=== PATIENT | female | born 1950 | race Caucasian/White ===

== ENCOUNTER 2017-12-22 10:56 | Inpatient (IN) | payer OTHER, MEDICARE ==
[2017-12-22] MEDS ORDERED: ASPIRIN 81 MG CHEWABLE TAB PO ONE (11:05)
[2017-12-22] MEDS ORDERED: ASPIRIN 81 MG CHEWABLE TAB ONE (11:11)
--- NOTE | 2017-12-22 11:11 | CPEKG ---
Heart Rate: 50 RR Interval: 1200 P-R Interval: 192 QRSD Interval: 80 QT Interval: 460 QTC Interval: 420 P Strat[place]: 68 QRS [place]: 66 T Wave [place]: 83 EKG Severity - ABNORMAL ECG - EKG Impression: SINUS RHYTHM EKG Impression: INFERIOR INJURY, PROBABLE EARLY ACUTE INFARCT EKG Impression: CONSIDER POSTERIOR WALL INVOLVEMENT Electronically Signed By: Jesus Manuel Sanz 22-Dec-2017 13:30:26
[2017-12-22] MEDS ORDERED: MIDAZOLAM 2 MG/2 ML VIAL ONE ×2 (11:18→11:28)
[2017-12-22] MEDS ORDERED: fentaNYL 100 MCG/2 ML INJ ONE (11:18)
--- NOTE | 2017-12-22 11:20 | EDPHY ---
H & P Stated Complaint: l cp noticed 1 hr ago Time Seen by Provider: 12/22/17 11:15 HPI/ROS: Chief Complaint: Chest pain HPI: 67-year-old woman began having substernal chest pain 1 hr ago. She is describing is a squeezing sensation similar to a blood pressure cuff. At worst is a 5/10. She has not have a history of similar episodes in the past. Pain is now down to about a 3/10. Has mild shortness of breath. She is having some numbness associated in her left arm. Does not have a history of similar episodes in the past. No fevers or chills. No cough. No recent illness. Has a history of smoking 2-3 cigarettes today is ago but has never been a heavy smoker. No family history of coronary artery disease. Denies any other medical problems or medicines. She is down visiting from [place]. She is not taking any medications for this. ROS: 10 point Review of Systems is negative except as noted in the HPI. PMH: Denies Social History: Former smoking, occasional alcohol, no recreational drug use Family History: No family history of coronary artery disease Physical Exam: Gen: Awake, Alert, uncomfortable appearing HEENT: Nose: no rhinorrhea Eyes: PERRLA, EOMI Mouth: Moist mucosa Neck: Supple, no JVD Chest: nontender, lungs clear to auscultation Heart: S1, S2 normal, no murmur Abd: Soft, non-tender, no guarding Back: no CVA tenderness, no midline tenderness Ext: no edema, non-tender Skin: no rash Neuro: CN II-XII intact, Sensation grossly intact, Strength 5/5 in bilateral upper and lower extremities - Personal History Current Tetanus/Diphtheria Vaccine: No - Medical/Surgical History Hx Asthma: No Hx Chronic Respiratory Disease: No Hx Diabetes: No Hx Cardiac Disease: No Hx Renal Disease: No Hx Cirrhosis: No Hx Alcoholism: No Hx HIV/AIDS: No Hx Splenectomy or Spleen Trauma: No Other PMH: palpitations - Social History Smoking Status: Never smoked Constitutional: Initial Vital Signs Temperature (C) 36.3 C 12/22/17 10:59 Heart Rate 54 L 12/22/17 10:59 Respiratory Rate 17 12/22/17 10:59 Blood Pressure 132/57 H 12/22/17 10:59 O2 Sat (%) 99 12/22/17 10:59 O2 Delivery Mode Room Air Allergies/Adverse Reactions: No Known Allergies Allergy (Unverified 12/22/17 10:58) Home Medications: Medication Instructions Recorded Ativan 12/22/17 Medical Decision Making - Diagnostics EKG Interpretation: ECG time 1109 a.m. sinus rhythm with a rate of 50, there are is ST elevations in leads to 3 in AVF with reciprocal changes in V1 and V2 consistent with an acute inferior STEMI. ED Course/Re-evaluation: 1109 ECG noted, cardiac alert called by me. Patient given IVs. She has gotten 324 mg of aspirin orally. 1112 Dr. Ireland, cardiology at the bedside. Patient to go to the field laborer. Departure - Departure Disposition: [facility] Inpatient Acute Clinical Impression: ST elevation myocardial infarction (STEMI) Condition: Serious Referrals: NONE *PRIMARY CARE P,. [Primary Care Provider] - As per Instructions
[2017-12-22] MEDS ORDERED: BIVALIRUDIN 250 MG/5 ML VIAL IV ONE (11:27)
[2017-12-22] MEDS ORDERED: NITROGLYCERIN 1,500 MCG/15 ML VIAL MISC ONE (11:43)
--- NOTE | 2017-12-22 12:27 | CPEKG ---
Heart Rate: 54 RR Interval: 1111 P-R Interval: 192 QRSD Interval: 92 QT Interval: 488 QTC Interval: 463 P [place]: 80 QRS [place]io: 63 T Wave [place]io: 71 EKG Severity - NORMAL ECG - EKG Impression: SINUS RHYTHM Electronically Signed By: Trung Hollingsworth 26-Dec-2017 09:37:15
[2017-12-22] MEDS ORDERED: ONDANSETRON 4 MG/2 ML VIAL IVP PRN (13:04)
[2017-12-22] MEDS ORDERED: ATROPINE SULFATE 1 MG/10 ML SYR IVP PRN (13:04)
[2017-12-22] MEDS ORDERED: NITROGLYCERIN 0.4 MG BTL SL PRN (13:04)
[2017-12-22] MEDS ORDERED: ACETAMINOPHEN 325 MG TAB PO PRN (13:04)
[2017-12-22] MEDS ORDERED: NS 1,000 ML IV SCH (13:15)
[2017-12-22] MEDS ORDERED: CLOPIDOGREL BISULFATE 75 MG TAB PO ONE (13:20)
[2017-12-22 13:31] LABS: PLATELET COUNT 237 10^3/uL (150-400)
--- NOTE | 2017-12-22 13:34 | PDDXCAT ---
Diagnostic Cath Note - . Date: 12/22/17 Professor Of Legal Studies: Beka Indication: other (Chest pain with inferior ST segment elevation.) - Procedure Access: right groin Procedure: left heart catheterization, coronary angiography, left ventriculogram - Materials Left Heart Cath size: 6F Left Heart Cath materials: JL4.0, pigtail, Mitch's R, other (JR4.0 guide catheter) - Findings-Left Heart Catheterization LM: Normal. LAD: Angiographically normal. LCX: For the most part, the circumflex and its branches appear to be angiographically normal. However, in some views there is what appears to be a small, distal, obtuse marginal branch "ghosting in" as if filled by collaterals. There is a bifurcating low posterolateral branch. The inferior division of this posterolateral branch has some spasm versus stenosis in its distal portion. RCA: Initially, a 6 Turkish guide catheter was used to engage the RCA in anticipation of the need for a PCI procedure. The ostial RCA developed significant spasm with severe damping of the pressure wave-form. Angiography revealed that, apart from the ostial spasm, the RCA and its distal branches were angiographically normal. The 6 Turkish guide catheter was exchanged for a 5 Turkish Ronnell right. The RCA was engaged and continued to demonstrate spasm. A 300 mcg dose of intracoronary nitroglycerin was administered. A few minutes later, repeat angiography demonstrated that the ostial spasm had resolved and the entire RCA appeared angiographically normal. EDP: 20 mmHg LVEF: 60% Wall motion: Inferoapical hypokinesis to akinesis. Complications: None Estimated blood loss: <50ml Closure method: Angioseal Assessment: 1) Overall preserved left ventricular systolic function with inferoapical akinesis. 2) Coronary anatomy as described above. Plan: Her angiographic images were reviewed in the cardiac cath lab radiology technologist by one of my interventional colleagues. There was no sign of a "stump" coming off of the circumflex that would explain a distal obtuse marginal branch filling by collaterals. The inferior division of the circumflex posterolateral branch was not felt to be of significant enough size or in the proper location to explain her left ventricular wall motion abnormality. While severe spasm of the ostial RCA could explain the inferior ST segment elevation on her ECG and her wall motion abnormality, it is typically thought that catheter induced coronary vasospasm is a nonspecific finding and does not necessarily correlate with clinical Prinzmetal angina. Another colleague felt that more of the true LV apex was involved suggesting that this potentially represented an episode of Takotsubo syndrome. A 12-lead ECG was repeated prior to taking her off of the cardiac cath lab radiology technologist table. This ECG appeared entirely normal. She will be admitted to the telemetry service. An echocardiogram and serial cardiac enzymes will be obtained. The magnitude of her enzyme rise may help distinguish between an infarction due to RCA spasm versus an episode of Takotsubo syndrome. She will be started on dual antiplatelet therapy. A lipid panel will be checked. Beta christina therapy will be started but may be transitioned to a calcium channel christina if it is ultimately felt that she has Prinzmetal angina. Patient Problems: Problems Problem Status Onset ST elevation myocardial infarction (STEMI) Acute
[2017-12-22 13:35] LABS: CREATINE KINASE 58 IU/L (0-156)
[2017-12-22] MEDS: HYDROCODONE/APAP 5/325 TAB PO PRN ×3 (14:12→22:07)
[2017-12-22] MEDS: METOPROLOL TARTRATE 25 MG TAB PO SCH ×2 (14:19→21:09)
--- NOTE | 2017-12-22 15:39 | ECHO ---
[email or web address] [address] [address] Main: [phone] Fax: Transthoracic Echocardiogram Name: ANANDA ELIAS MR#: [id number] Study Date: 12/22/2017 Study Time: 01:37 PM Date of : 1950 Age: 67 year(s) Height: 165.1 cm (65 in.) Weight: 61.24 kg (135 lb.) BSA: 1.67 m2 Gender: Female Examination: Echo Indication: Chest Pain Image Quality: Contrast: Requested by: Cornelio Ireland BP: 103 mmHg/57 mmHg Heart Rate: Rhythm: Indication: Chest Pain Procedure [employer] Director: Whit Fletcher Physician: Cornelio Ireland Requesting Provider: Cornelio Ireland Measurements: Chambers Valvular Assessment AV/MV Valvular Assessment TV/PV Normal Normal Normal Name Value Range Name Value Range Name Value Range Ao Claudine (MM): 2.8 cm (2.2 cm-3.7 AV Vmax: 1.07 m/s (1 m/s-1.7 TR Vmax: 2.46 mm/s ( - ) cm) m/s) TR PGmax: 24 mmHg ( - ) IVSd (2D): 0.6 cm (0.6 cm-1.1 AV maxP mmHg ( - ) syst. PAP: 29 mmHg ( - ) cm) LVDd (2D): 4.5 cm (3.9 cm-5.3 cm) LVDs (2D): 2.8 cm (2.1 cm-4 cm) LVPWd (2D): 0.7 cm ( - ) LVEF (MOD4): 65 % (>=55 %) EF Range: 65-70 % Continued Measurements: Chambers Valvular Assessment TV/PV Name Value Name Value LADs: 2.8 cm CVP (est.): 5 mmHg Findings: Left Ventricle: Normal size left ventricle. No LV hypertrophy. Normal global systolic LV function. The ejection fraction is estimated to be 65-70 %. LV mid inferolateral wall appears hypokinetic. . Right Ventricle: Normal size right ventricle. There is a moderator band noted in the right ventricle. Left Atrium: Patient: ANANDA ELIAS Study Date: 12/22/2017 Page 1 of 2 01:37 PM The left atrium is normal in size. Right Atrium: The right atrium is normal in size. Mitral Valve: The mitral valve is normal in appearance and function. Mild mitral valve regurgitation is present. Aortic Valve: The aortic valve is normal in appearance and function. Tricuspid Valve: The tricuspid valve is normal in appearance and function. Trivial tricuspid valve regurgitation. Pulmonic Valve: Pulmonary valve not well visualized. Aorta: The aorta is normal. Pericardium: No pericardial effusion. (No Signature Object) Patient: ANANDA ELIAS Study Date: 12/22/2017 Page 2 of 2 01:37 PM [id number]
--- NOTE | 2017-12-22 17:54 | GHP ---
[f rep st] HISTORY AND PHYSICAL DATE OF ADMISSION: 12/22/2017 REASON FOR ADMISSION: Acute inferior ST-segment elevation myocardial infarction. HISTORY: The patient is a 67-year-old woman with no prior cardiac history. She was talking on the phone early this morning and began to develop significant substernal chest pressure. There was no radiation or associated diaphoresis or shortness of breath. She did not experience nausea. Her symptoms persisted and she called 911. On arrival to the emergency department, her ECG demonstrates inferior ST elevation of at least 1.5 mm with some reciprocal changes. She is hemodynamically stable. PAST MEDICAL HISTORY: Notable for hypothyroidism and polycystic ovarian syndrome. PAST SURGICAL HISTORY: Bilateral oophorectomy. MEDICATIONS: Synthroid and Ativan. ALLERGIES: No known drug allergies. FAMILY HISTORY: Noncontributory. SOCIAL HISTORY: She is single. She has no offspring. She works as a designer/writer. She does not consume significant amounts of alcohol. In the remote past she would smoke a few cigarettes per day, but has not done so for many years. REVIEW OF SYSTEMS: Apart from the chest pressure that prompted this hospital encounter, a 10-point review was negative. PHYSICAL EXAMINATION: VITAL SIGNS: Heart rate in the 70s with sinus rhythm on the monitor. Blood pressure 114/60. GENERAL: Well developed, well nourished, healthy appearing, middle-aged female, in no acute distress. She is alert and oriented x3. HEAD AND NECK: No scleral icterus. Mucous membranes moist. Carotid pulses 2+, without bruits. There is no JVD. CHEST: Lung hdz clear to auscultation. CARDIAC: Regular rate and rhythm, with normal S1 and S2. There is no murmur or gallop. ABDOMEN: Soft, nondistended, nontender, with normal bowel sounds. EXTREMITIES: 2+ pulses and no peripheral edema. ECG: Her ECG findings are described in the History of Present Illness. LABORATORY: Pending at the time of this dictation. IMPRESSION: This is a 67-year-old woman, presenting with an acute inferior ST- segment elevation myocardial infarction that began approximately 1 hour prior to her arrival. She is hemodynamically stable. PLAN: Preparations are underway to take the patient emergently to the cardiac laborer steel handling for angiography and intervention. It is anticipated that she will remain in the hospital for more than 2 midnights for care of her VT. /[id number]/MODL MTDD
[2017-12-22 22:00] LABS: CREATINE KINASE 150 IU/L (0-156)
[2017-12-22] MEDS: LORazepam 0.5 MG TAB PO PRN (22:08)
[2017-12-23] MEDS: LORazepam 0.5 MG TAB PO PRN (00:05)
[2017-12-23 05:28] LABS: CREATINE KINASE 186 IU/L (0-156)
[2017-12-23 08:38] VITALS: RESP 18
[2017-12-23] MEDS ORDERED: amLODIPine BESYLATE 5 MG TAB PO SCH (09:00)
[2017-12-23] MEDS ORDERED: CLOPIDOGREL BISULFATE 75 MG TAB PO SCH (09:00)
[2017-12-23] MEDS ORDERED: ASPIRIN 81 MG CHEWABLE TAB PO SCH (09:00)
[2017-12-23] MEDS ORDERED: PNEUMOC 13-VAL CONJ-DIP CRM/PF 0.5 ML SYR IM ONE (10:27)
[2017-12-23] MEDS ORDERED: FLU VACC QS 2017-18 (3YR+)/PF 0.5 ML SYR (FLUARIX QUAD) IM ONE (10:27)
--- NOTE | 2017-12-23 11:20 | CPEKG ---
Heart Rate: 61 RR Interval: 984 P-R Interval: 128 QRSD Interval: 76 QT Interval: 396 QTC Interval: 399 P [place]: 50 QRS [place]: 46 T Wave [place]: 1 EKG Severity - BORDERLINE ECG - EKG Impression: SINUS RHYTHM EKG Impression: BORDERLINE T ABNORMALITIES, INFERIOR LEADS EKG Impression: COMPARED WITH November AT 12:25 P.M., T-WAVE ABNORMALITIES ARE NOW EKG Impression: PRESENT Electronically Signed By: Betsy Levi 23-Dec-2017 13:30:29
[2017-12-23] MEDS: CARVEDILOL 3.125 MG TAB PO SCH ×2 (11:34→17:32)
--- NOTE | 2017-12-23 12:00 | PDMN ---
Medical Necessity Medical necessity: Pt meets IP criteria per MD; est los >2 mn for eval/tx of Prizmetal angina vs Takotsubo syndrome & STEMI; admit for further workup/ monitoring, angiography & intervention; per H&P & order 12/22/17
--- NOTE | 2017-12-23 12:06 | ASMTCASEMG ---
Living Arrangements What is your living Answers: Alone arrangement? Who do you live with? Type Of Residence What kind of residence do Answers: House you live in? Discharge Plan Comments Coordination Status Comments Notes: Pt is a 67 y/o female admitted for a stemi. Pt will most likely d/c independent when medically stable. No therapies ordered at this time. CM available for changes. Plan: Independent Date Signed: 12/23/2017 12:05 PM Electronically Signed By:ALESHIA Rodrigues
[2017-12-23 12:15] LABS: CREATINE KINASE 149 IU/L (0-156)
[2017-12-23] MEDS ORDERED: IOPAMIDOL (ISOVUE 370) 100 ML BTL IV ONE ×2 (13:30→13:59)
[2017-12-23 15:00] VITALS: BP 104/48; PULSE 50; TEMP 98; O2SAT 97
[2017-12-23] MEDS ORDERED: CARVEDILOL 3.125 MG TAB PO SCH (18:00)
[2017-12-24] MEDS ORDERED: MULTIVITAMINS 1 EACH TAB PO SCH (09:00)
--- NOTE | 2017-12-24 10:30 | ASDISCHSUM ---
Discharge Information Plan Status:Home with No Needs Medically Cleared to Leave:12/22/2017 Discharge Date:12/23/2017 06:26 PM CM D/C Disposition: ADT D/C Disposition:Home, Routine, Self-Care Projected Discharge Date:12/23/2017 12:00 AM Transportation at D/C: Discharge Delay Reason: Follow-Up Date:12/23/2017 12:00 AM Discharge Slot: Final Diagnosis: Placement Information Patient Contact Information Contact Name:BARRINGTON Relationship:Friend Address:[address] [place] Work Phone: City:[place] [facility] Phone: [facility]/Zip Code:[place] [address] Email: Financial Information Financial Class: Primary Plan Desc:MEDICARE INPATIENT Primary Plan Number:[id number] Secondary Plan Desc:[employer]/M[employer] SUPPLEMENT Secondary Plan Number:[id number] Assessment Information [facility] Initial CM Assessment Living Arrangements What is your living Answers: Alone arrangement? Who do you live with? Type Of Residence What kind of residence do Answers: House you live in? Discharge Plan Comments Coordination Status Comments Notes: Pt is a 67 y/o female admitted for a stemi. Pt will most likely d/c independent when medically stable. No therapies ordered at this time. CM available for changes. Plan: Independent Date Signed: 12/23/2017 12:05 PM Electronically Signed By:ALESHIA Rodrigues Intervention Information
== END 2017-12-23 18:26 | disposition home or self-care (01) | DRG 282 ==
LOC: F2W 14:39
PROVIDERS: ADMIT Internal Medicine Interventional Cardiology; ATTEND Internal Medicine Interventional Cardiology
PROC: 4A023N7 Measurement of Cardiac Sampling and Pressure, Left Heart, Percutaneous Approach (ICD-10-PCS; principal; 2017-12-22)
PROC: B2151ZZ Fluoroscopy of Left Heart using Low Osmolar Contrast (ICD-10-PCS; principal; 2017-12-22)
PROC: B2111ZZ Fluoroscopy of Multiple Coronary Arteries using Low Osmolar Contrast (ICD-10-PCS; principal; 2017-12-22)
DX: I21.19 ST elevation (STEMI) myocardial infarction involving other coronary artery of inferior wall (principal); E03.9 Hypothyroidism, unspecified; E28.2 Polycystic ovarian syndrome; Z23 Encounter for immunization; Z87.891 Personal history of nicotine dependence
CPT/HCPCS: C1760; C1769; C1887; G0008; G0009; J0583; J2250; J3010; Q9967